=== PATIENT | female | born 1975 | race Caucasian/White ===

== ENCOUNTER 2016-10-28 13:53 | Emergency (ER) | payer BC | END 2016-10-28 17:04 | disposition critical access hospital (66) | LOC: ER 13:53 | DX: N13.2 Hydronephrosis with renal and ureteral calculous obstruction (principal); F32.9 Major depressive disorder, single episode, unspecified; Z90.49 Acquired absence of other specified parts of digestive tract; Z90.710 Acquired absence of both cervix and uterus; Z79.899 Other long term (current) drug therapy; Z88.8 Allergy status to other drugs, medicaments and biological substances | CPT/HCPCS: 96374; 96375; 96376 ==

== ENCOUNTER 2016-10-28 13:53 | Observation (INO) | payer BC ==
[~2016-10-28] VITALS: Ht 165.1 cm; Wt 69.6 kg
--- NOTE | 2016-10-30 01:33 | NUR ---
AT 2350 PT RETURN FROM PACU, A/O X3. PT DOZING IN BED, RR EVEN NON-LABORED. PT PT DENIED PAIN AT THIS TIME AND REQUESTED TO GO HOME TONIGHT.
== END 2016-10-30 01:20 | disposition home or self-care (01) ==
LOC: ER 13:53 → MED 17:05
PROVIDERS: ADMIT Internal Medicine
DX: N13.2 Hydronephrosis with renal and ureteral calculous obstruction (principal); F41.9 Anxiety disorder, unspecified; F32.9 Major depressive disorder, single episode, unspecified; Z79.899 Other long term (current) drug therapy; Z88.1 Allergy status to other antibiotic agents; Z88.8 Allergy status to other drugs, medicaments and biological substances; Z90.710 Acquired absence of both cervix and uterus; Z90.49 Acquired absence of other specified parts of digestive tract; Z98.84 Bariatric surgery status
CPT/HCPCS: 36415; 96372; 96374; 96375; 96376; C1758; C1894; C2617; G0378; J1200; J1885; J2550; J2704; Q9967